=== PATIENT | male | born 1965 | race Caucasian/White ===

== ENCOUNTER → 2025-08-31 13:04 | Outpatient (CLI) | payer BC, SELFPAY ==
--- NOTE | 2025-08-31 13:07 | DI.RAD.S_ITS ---
PROCEDURE: XR ELBOW RT MIN 3V INDICATIONS: Elbow bone abnormality TECHNIQUE: 3 views of the elbow were acquired. COMPARISON: None. FINDINGS: Bones: No fractures or dislocations. No suspicious bony lesions. Enthesophytosis of the triceps insertion. Soft tissues: No elbow joint effusion. No suspicious soft tissue calcifications. IMPRESSION: No acute bony abnormality or significant joint effusion. Enthesophytosis at the posterior olecranon corresponds to the triceps insertion can be seen with chronic tendinopathy. Dictated by: Izaiah Silva M.D. on 08/31/2025 at 16:46 Approved by: Izaiah Silva M.D. on 08/31/2025 at 16:46
== END ==
PROVIDERS: Referring Provider Nurse Practitioner Family; Visit Provider Nurse Practitioner Family
DX: M25.521 Pain in right elbow (principal)
CPT/HCPCS: 73080